=== PATIENT | male | born 1950 | race Caucasian/White ===

== ENCOUNTER → 2017-01-09 | Day surgery (SDC) | payer BC ==
[2016-12-27 13:47] VITALS: Ht 177.8 cm; Wt 177.3 kg
[~2017-01-09] VITALS: Ht 177.8 cm; Wt 177.3 kg
[~2017-01-09] MED LIST: ASPCH81X PO; ATOR-24 PO; CITA40TA4 PO; CLOP1TAB15 PO; FENTANYL CITRATE INJ 50 MCG/1 ML 2 ML VIAL ONE; GLC/500 PO; GLUCTAB7 PO; HYD50 PO; LIDOCAINE HCL 2% 2 ML VIAL (20MG/ML) ONE; METO50TA7 PO; MULT-1093 PO; PROPOFOL IV EMULSION 10 MG/ML 20 ML VIAL IV ONE
--- NOTE | 2017-01-09 12:54 | Endo History and Physical ---
History & Physical Date of Service: Jan 09, 2017. Chief Complaint: History of colon polyps Referring Physician: Dr. Salas History of Present Illness 66 yo CM who presents for colonoscopy secondary to history of colon polyps. Past Surgical History Hx Cardiac Surgery: Yes (PERICARDIECTOMY, HEART CATH-1 STENT PLACED) Hx Internal Defibrillator: No Hx Pacemaker: No Hx Abdominal Surgery: No Hx of Implantable Prosthesis: No Hx Post-Op Nausea and Vomiting: No Hx Cancer Surgery: Yes (MELANOMA REMOVAL FROM BACK) Hx Thoracic Surgery: No Hx Orthopedic: No Hx Urinary Tract Surgery: No Family History Colon CA Social History Smoking Status: Former Smoker Hx Substance Use: No Hx Alcohol Use: Yes (OCCASIONALLY) Allergies Coded Allergies: Penicillins (Verified Allergy, Unknown, HIVES, 12/27/16) Current Medications Reported Home Medications Medications Dose Route/Sig Max Daily Dose Days Date Category Glucosamine Chondroitin (Klccnblqhlh-Mvbppruljue-Ltw C-) 1 Tab Tab 1 Tab PO QAM 12/27/16 Reported Centrum Silver 50+Men (Multiple Vitamins W/ Minerals) 1 Tab Tab 1 Tab PO QAM 12/27/16 Reported Lipitor (Atorvastatin Calcium) 40 Mg Tab 40 Mg PO QPM 12/27/16 Reported Citalopram Hydrobromide (Citalopram) 40 Mg Tab 1 Tab PO QAM 90 12/27/16 Reported Hydrochlorothiazide 50 Mg Tab 1 Tab PO QAM 12/27/16 Reported Toprol-Xl (Metoprolol Succinate) 50 Mg Tabcr 50 Mg PO QAM 12/27/16 Reported Glucophage (Metformin Hcl) 500 Mg Tab 500 Mg PO BID 12/27/16 Reported Plavix (Clopidogrel Bisulfate) 75 Mg Tab 75 Mg PO QAM 12/27/16 Reported Aspirin Chewable (Aspirin) 81 Mg Chew 81 Mg PO QAM 12/27/16 Reported Vital Signs Weight (Kilograms): 177.27 Height (Feet): 5 Height (Inches): 10 Physical Exam General Appearance: WD/WN, no apparent distress Respiratory/Chest: Auscultation: breath sounds normal Cardiovascular: Heart Auscultation: RRR Abdomen: Bowel Sounds: normal Inspection & Palpation: soft, non-distended, no tenderness, guarding & rebound Assessment and Plan Assessment: 66 yo CM who presents for colonoscopy secondary to history of colon polyps. Plan: Proceed with Colonoscopy.
--- NOTE | 2017-01-09 13:49 | Discharge Instructions ---
Endoscopy Patient Instructions Date / Procedure(s) Performed Jan 09, 2017. Colonoscopy Allergy Information Coded Allergies: Penicillins (Verified Allergy, Unknown, HIVES, 12/27/16) Discharge Date / Findings Jan 09, 2017. Colon polyps Non-specific colitis s/p biopsies Diverticulosis Internal hemorrhoids Medication Instructions Stopped Medication(s): PLAVIX 01/03/17 ASPIRIN 01/09/17 OK to resume all medications today as prescribed Medications Dose Route/Sig Max Daily Dose Days Date Category Glucosamine Chondroitin (Dswgygomegp-Vwczpzdtkaq-Ezs C-) 1 Tab Tab 1 Tab PO QAM 12/27/16 Reported Centrum Silver 50+Men (Multiple Vitamins W/ Minerals) 1 Tab Tab 1 Tab PO QAM 12/27/16 Reported Lipitor (Atorvastatin Calcium) 40 Mg Tab 40 Mg PO QPM 12/27/16 Reported Citalopram Hydrobromide (Citalopram) 40 Mg Tab 1 Tab PO QAM 90 12/27/16 Reported Hydrochlorothiazide 50 Mg Tab 1 Tab PO QAM 12/27/16 Reported Toprol-Xl (Metoprolol Succinate) 50 Mg Tabcr 50 Mg PO QAM 12/27/16 Reported Glucophage (Metformin Hcl) 500 Mg Tab 500 Mg PO BID 12/27/16 Reported Plavix (Clopidogrel Bisulfate) 75 Mg Tab 75 Mg PO QAM 12/27/16 Reported Aspirin Chewable (Aspirin) 81 Mg Chew 81 Mg PO QAM 12/27/16 Reported Provider Instructions Activity Restrictions - No exercising or heavy lifting for 24 hours. - Do not drink alcohol the day of the procedure. - Do not drive a car or operate machinery until the day after the procedure. - Do not make any important decisions or sign important papers in 24 hours after the procedure. Following Day: - Return to full activity which may include returning to work/school. Diet Start your diet with liquids and light foods (jello, soup, juice, toast). Then eat your usual diet if not nauseated. Treatment For Common After Affects For mild abdominal pain, bloating, or excessive gas: - Rest - Eat lightly - Lie on right side Follow-Up Information Follow-up with DR. GARCIA as scheduled Anesthesia Information What You Should Know You have had a procedure that required some medicine to reduce anxiety and discomfort. This treatment is called moderate sedation. After receiving the treatment, you may be sleepy, but you will be able to breathe on your own. The effects of the treatment may last for several hours. Follow these instructions along with Activity/Diet recommendations noted above: * Do NOT do anything where dizziness or clumsiness would be dangerous. * Rest quietly at home today, then you can be up and about tomorrow. * Have a responsible person stay with you the rest of today. * You may have had an I.V. today. If so, you may take the dressing off later today. Recommendations Call your doctor if: * Trouble breathing * Continuous vomiting for more than 24 hours * Temperature above 101 degrees * Severe abdominal pain or bloating * Pain not relieved by pain medicine ordered * There is increased drainage or redness from any incision * A large amount of rectal bleeding greater than 2-3 tablespoons. (If you had a polyp/s removed or have hemorrhoids, a small amount of blood - from the rectum is to be expected.) * You have any unanswered questions or concerns. IN THE EVENT OF A SERIOUS EMERGENCY, GO TO THE NEAREST EMERGENCY ROOM Your discharge instructions were prepared by provider Xavi Lopez. Patient Instructions Signature Page Timo Summers Patient (or Guardian) Signature/Date: I have read and understand the instructions given to me by my caregivers. Caregiver/RN/Doctor Signature/Date: The above-named patient and/or guardian has received patient instructions on this date. + Original Patient Signature Page (only) stays with chart. Please make copy for patient.
--- NOTE | 2017-01-09 13:56 | GI REPORT ---
Procedure Date: 01/09/2017 1:12 PM Procedure: Colonoscopy Indications: High risk colon cancer surveillance: Personal history of colonic polyps Medicines: Monitored Anesthesia Care Complications: No immediate complications. Estimated Blood Loss: Estimated blood loss: none. Procedure: Pre-Anesthesia Assessment: - Prior to the procedure, a History and Physical was performed, and patient medications and allergies were reviewed. The patient's tolerance of previous anesthesia was also reviewed. The risks and benefits of the procedure and the sedation options and risks were discussed with the patient. All questions were answered, and informed consent was obtained. Prior Anticoagulants: The patient last took aspirin 1 day and Plavix (clopidogrel) 6 days prior to the procedure. ASA Grade Assessment: III - A patient with severe systemic disease. After reviewing the risks and benefits, the patient was deemed in satisfactory condition to undergo the procedure. After I obtained informed consent, the scope was passed under direct vision. Throughout the procedure, the patient's blood pressure, pulse, and oxygen saturations were monitored continuously. The scope was introduced through the anus and advanced to the terminal ileum. The colonoscopy was performed without difficulty. The patient tolerated the procedure well. The quality of the bowel preparation was good. The terminal ileum, ileocecal valve, appendiceal orifice, and rectum were photographed. Findings: Two sessile polyps were found in the descending colon and in the ascending colon. The polyps were 5 to 6 mm in size. These polyps were removed with a hot snare. Resection and retrieval were complete. To prevent bleeding after the polypectomy, one hemostatic clip was successfully placed (MR conditional). There was no bleeding at the end of the procedure. Localized moderate inflammation characterized by congestion (edema) and erythema was found in the sigmoid colon. Biopsies were taken with a cold forceps for histology. Multiple small-mouthed diverticula were found in the sigmoid colon. Non-bleeding internal hemorrhoids were found during retroflexion. The hemorrhoids were small. Impression: - Two 5 to 6 mm polyps in the descending colon and in the ascending colon, removed with a hot snare. Resected and retrieved. Clip (MR conditional) was placed. - Localized moderate inflammation was found in the sigmoid colon secondary to colitis. Biopsied. - Diverticulosis in the sigmoid colon. - Non-bleeding internal hemorrhoids. Recommendation: - Resume previous diet. - Continue present medications. - Repeat colonoscopy for surveillance based on pathology results. - Return to primary care physician as previously scheduled. Xavi Lopez, DO 01/09/2017 1:56:01 PM This report has been signed electronically. Note Initiated On: 01/09/2017 1:12 PM I attest to the content of the Intraoperative Record and orders documented therein, exceptions below
--- NOTE | 2017-01-09 13:58 | Anesthesiology Progress Note ---
Anesthesia Post Op Note Date & Time Jan 09, 2017 at 13:58 Vital Signs Pain Intensity: 0 Vital Signs Past 12 Hours Date Time Temp Pulse Resp B/P (MAP) Pulse Ox O2 Delivery O2 Flow Rate FiO2 01/09/17 13:47 69 16 127/59 (81) 95 Room Air 01/09/17 12:56 37.5 69 20 175/78 (110) 96 Room Air Notes Mental Status: alert / awake / arousable, participated in evaluation Pt Amnestic to Procedure: Yes Nausea / Vomiting: adequately controlled Pain: adequately controlled Airway Patency, RR, SpO2: stable & adequate BP & HR: stable & adequate Hydration State: stable & adequate Anesthetic Complications: no major complications apparent
[2017-01-09 14:17] VITALS: BP 122/77; PULSE 60; O2SAT 95
== END | disposition home or self-care (01) ==
LOC: C.GI 12:23
PROVIDERS: ATTEND Internal Medicine
DX: Z12.11 Encounter for screening for malignant neoplasm of colon (principal); D12.2 Benign neoplasm of ascending colon; D12.4 Benign neoplasm of descending colon; Z86.010 Personal history of colon polyps; Z85.820 Personal history of malignant melanoma of skin; Z80.0 Family history of malignant neoplasm of digestive organs; Z87.891 Personal history of nicotine dependence; Z79.82 Long term (current) use of aspirin; Z79.899 Other long term (current) drug therapy; K57.30 Diverticulosis of large intestine without perforation or abscess without bleeding; K64.8 Other hemorrhoids

== ENCOUNTER → 2017-04-26 | Outpatient (CLI) | payer BC ==
[~2017-04-26] MED LIST changes: -FENTANYL CITRATE INJ 50 MCG/1 ML 2 ML VIAL ONE; -LIDOCAINE HCL 2% 2 ML VIAL (20MG/ML) ONE; -PROPOFOL IV EMULSION 10 MG/ML 20 ML VIAL IV ONE
[2017-04-26 12:59] LABS: ALT/SGPT 23 U/L (12-78); AST/SGOT 13 U/L (15-37); BLOOD UREA NITROGEN 18 mg/dl (7-18); BUN/CREATININE RATIO 21.5 (10-20); CALCIUM 9.5 mg/dl (8.5-10.1); CARBON DIOXIDE 27 mmol/L (21-32); CHLORIDE 104 mmol/L (98-107); CHOLESTEROL 117 mg/dl (0-200); CREATININE 0.85 mg/dl (0.60-1.40); GLUCOSE 139 mg/dl (70-99); POTASSIUM 3.8 mmol/L (3.5-5.1); SODIUM 138 mmol/L (136-145)
[2017-04-26 13:03] LABS: CHOLESTEROL/HDL RATIO 2.5; HDL CHOLESTEROL 46 mg/dl; LDL CHOLESTEROL CALCULATED 55 mg/dl; PROSTATE SPECIFIC ANTIGEN 0.512 ng/ml (0.000-4.000); TRIGLYCERIDES 81 mg/dl (0-150); VERY LOW DENSITY LIPOPROT CALC 16 mg/dl
[2017-04-26 13:09] LABS: ESTIMATED AVERAGE GLUCOSE 146 mg/dl; HA1C FLAG Normal (Normal)
== END ==
LOC: C.LABBFT 08:01
PROVIDERS: ATTEND Internal Medicine
DX: Z00.00 Encounter for general adult medical examination without abnormal findings (principal); Z11.59 Encounter for screening for other viral diseases; R73.01 Impaired fasting glucose; E78.5 Hyperlipidemia, unspecified; Z12.5 Encounter for screening for malignant neoplasm of prostate

== ENCOUNTER → 2017-12-12 | Outpatient (CLI) | payer BC, OTHER ==
[~2017-12-12] VITALS: Ht 177.8 cm; Wt 181.8 kg
[~2017-12-12] MED LIST changes: -METO50TA7 PO; +METO50TA8 PO
[2017-12-12 15:19] VITALS: BP 149/83; PULSE 75; Ht 177.8 cm; Wt 181.8 kg
== END | disposition home or self-care (01) ==
LOC: C.NEUR 13:10
PROVIDERS: ATTEND Physician Assistant
DX: G47.33 Obstructive sleep apnea (adult) (pediatric) (principal); Z88.0 Allergy status to penicillin

== ENCOUNTER 2025-06-14 05:18 | Observation (INO) ==
--- NOTE | 2025-05-11 14:05 | PAT Medication Instructions ---
Medication Instructions Date of Service May 11, 2025 Home Medications Medication Instructions Recorded meclizine 25 mg tablet 25 mg PO TID PRN dizziness #30 tabs 06/18/24 sildenafil 100 mg tablet 100 mg PO DAILY PRN sexual 07/08/24 activity #20 tabs metformin 1,000 mg tablet See Rx Instructions .Route 08/28/24 .COMPLEX #225 tabs hydrochlorothiazide 25 mg tablet 25 mg PO QAM #90 tabs 02/26/25 metoprolol succinate 50 mg 50 mg PO QAM #90 tabs 04/26/25 tablet,extended release 24 hr aspirin 81 mg tablet,delayed release (Adult Low Dose Aspirin) 81 mg PO QAM meclizine 25 mg tablet 25 mg PO TID PRN dizziness sildenafil 100 mg tablet 100 mg PO DAILY PRN sexual activity metformin 1,000 mg tablet See Rx Instructions .Route .COMPLEX cholecalciferol (vitamin D3) 100 mcg (4,000 unit) capsule 100 mcg PO QAM vitamin B12 500 mcg-folic acid 400 mcg tablet 1 tab PO DAILY hydrochlorothiazide 25 mg tablet 25 mg PO QAM metoprolol succinate 50 mg tablet,extended release 24 hr 50 mg PO QAM atorvastatin 40 mg tablet (Lipitor) 40 mg PO HS citalopram 40 mg tablet (Celexa) 40 mg PO QAM clopidogrel 75 mg tablet (Plavix) 75 mg PO QAM olmesartan 20 mg tablet 20 mg PO QAM tamsulosin 0.4 mg capsule (Flomax) 0.4 mg PO QAM ASK your prescriber and surgeon aspirin 81 mg tablet,delayed release (Adult Low Dose Aspirin) 81 mg PO QAM clopidogrel 75 mg tablet (Plavix) 75 mg PO QAM (From anesthesia perspective, clopidogrel/Plavix is requested to be stopped 7 days before surgery. Please check if okay with doctor that prescribes this to you) DO NOT take the morning of surgery sildenafil 100 mg tablet 100 mg PO DAILY PRN sexual activity metformin 1,000 mg tablet See Rx Instructions .Route .COMPLEX cholecalciferol (vitamin D3) 100 mcg (4,000 unit) capsule 100 mcg PO QAM vitamin B12 500 mcg-folic acid 400 mcg tablet 1 tab PO DAILY hydrochlorothiazide 25 mg tablet 25 mg PO QAM olmesartan 20 mg tablet 20 mg PO QAM Take morning of surgery With a small sip of water, OTHERWISE NOTHING TO EAT OR DRINK AFTER MIDNIGHT: meclizine 25 mg tablet 25 mg PO TID PRN dizziness (if needed) metoprolol succinate 50 mg tablet,extended release 24 hr 50 mg PO QAM citalopram 40 mg tablet (Celexa) 40 mg PO QAM tamsulosin 0.4 mg capsule (Flomax) 0.4 mg PO QAM Take evening before surgery meclizine 25 mg tablet 25 mg PO TID PRN dizziness (if needed) metformin 1,000 mg tablet See Rx Instructions .Route .COMPLEX atorvastatin 40 mg tablet (Lipitor) 40 mg PO HS Other Notes If you have any questions please call us at [phone] or [phone] or [phone] or [phone]
--- NOTE | 2025-05-18 13:08 | Anesthesiology Consultation ---
Date of Service May 18, 2025 Assessment & Plan (1) Encounter for pre-operative examination: Chart Review Chart Review: Acceptable Risk for Surgery (pending PCP preop appt 05/31/25 regarding hyperkalemia and hyponatremia ) and Patient seen in Pre Admission Testing - Please set up preop PCP appt (Allyson Barros PA-C) re: hyperkalemia and hyponatremia (workload note sent to PCP 05/18/25 and PCP recommended preop evaluation appt (did make patient aware) - PCP preop appt scheduled 05/31/25 - Check BSG AM DOS - Plavix instructions per surgeon and prescriber (patient did check with radio tester (Dr Savage) and was approved to come off Plavix x 7 days per patient) - Patient is NOT an OPJ candidate (currently 23 hour obs) Per PAT appt on 05/18/25, no recent illness/disease exposures, illness related symptoms, or recent illness/disease positive tests. Will leave to surgeon's discretion if preop Covid testing needed Cardiology visit 02/16/25= "... coronary artery disease... stable exercise tolerance and stamina... HTN... repeat BP taken shows good control... Dyslipidemia... atorvastatin... Chronic leg edema... continue to use support hos e... 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 no current signs of symptoms suggestive of thromboembolic event... remote history of atrial fibrillation... no evidence of a fib since pericardiectomy on 11/08/2004..." Teaching & Discussion Pre-Anesthesia Teaching/Discussion Notes: Instructed NPO after midnight before surgery,except medications with 15 cc of water. Medication instructions provided according to the PAT guidelines. History Surgery Operation Date: 06/14/25 12:00 Proposed Procedures p Robotic Assisted Right Total Knee Arthroplasty - Luis Smith, Height/Weight Height: 5 ft 10 in Weight: 169.8 kg Allergies Allergy/AdvReac Type Severity Reaction Status Date / Time Penicillins Allergy Mild Hives Verified 05/10/25 13:11 Medications Home Medications Medication Instructions Recorded Confirmed Last Taken aspirin 81 mg tablet,delayed 81 mg PO QAM 03/24/19 05/10/25 02/07/25 release (Adult Low Dose Aspirin) meclizine 25 mg tablet 25 mg PO TID PRN dizziness #30 tabs 06/18/24 05/10/25 Unknown sildenafil 100 mg tablet 100 mg PO DAILY PRN sexual 07/08/24 05/10/25 02/07/25 activity #20 tabs metformin 1,000 mg tablet See Rx Instructions .Route 08/28/24 05/10/25 02/07/25 .COMPLEX #225 tabs cholecalciferol (vitamin D3) 100 100 mcg PO QAM 01/25/25 05/10/25 02/07/25 mcg (4,000 unit) capsule vitamin B12 500 mcg-folic acid 400 1 tab PO DAILY 01/25/25 05/10/25 Unknown mcg tablet hydrochlorothiazide 25 mg tablet 25 mg PO QAM #90 tabs 02/26/25 05/10/25 Unknown metoprolol succinate 50 mg 50 mg PO QAM #90 tabs 04/26/25 05/10/25 Unknown tablet,extended release 24 hr atorvastatin 40 mg tablet (Lipitor) 40 mg PO HS 05/10/25 05/10/25 Unknown citalopram 40 mg tablet (Celexa) 40 mg PO QAM 05/10/25 05/10/25 Unknown clopidogrel 75 mg tablet (Plavix) 75 mg PO QAM 05/10/25 05/10/25 Unknown olmesartan 20 mg tablet 20 mg PO QAM 05/10/25 05/10/25 Unknown tamsulosin 0.4 mg capsule (Flomax) 0.4 mg PO QAM 05/10/25 05/10/25 Unknown Past Medical History Medical History (Updated 05/18/25 @ 13:36 by Rhoda Nava PA-C) Antiplatelet or antithrombotic long-term use Clopidogrel/Plavix BPH NOS w ur obs/LUTS follows with urology- dr. null CAD (coronary artery disease) x1 stent 2009 - follows with cardio dr. 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- no issues since (s/p pericardiectomy (pericardial window was ineffective) Sleep apnea CPAP Tinnitus of right ear Exercise / Class Metabolic Activity II 4-5 Yardwork/Stairs/Walk up hill (one flight of stairs - no chest pain or SOB ) Past Family History Family History Mother Colorectal cancer Son Colorectal cancer Father Hypertension Prostate cancer Other Cancer No family history of adverse response to anesthesia No family history of bleeding disorder Stroke Denies family history of Ovarian cancer Myocardial infarction Breast cancer Past Surgical History Surgical History (Updated 05/18/25 @ 13:36 by Rhoda Nava PA-C) History of cystoscopy History of melanoma excision History of [place] (2004[place] [facility] [place] History of tonsillectomy History of tooth extraction Hx of colonoscopy with polypectomy S/P cardiac catheterization (2009) sasha >no [place]- with 1 stent - follows with cardio dr. savage S/P drug eluting coronary stent placement (2009) sasha >no [place]- with 1 stent - follows with cardio dr. savage S/P lymph node biopsy groin - benign Past Anesthesia History No Hx of Anesthesia Complications and No Family Hx of Anesthesia Complications History of PONV No Hx of Motion Sickness and History of PONV (only with ether during childhood- no issues with subsequent surgeries ) Social History Smoking Status: Former smoker Do You Dip or Chew Tobacco: No Smoking End Date: 30 + years ago Hx Alcohol Use: Yes Alcohol type: beer, wine and hard liquor alcohol intake frequency: holidays/special occasions only Hx Substance Use: No substance use type: does not use Review of Systems Patient denies chest pain, shortness of breath at rest, reflux, cough, wheezing, palpitations. No hx of seizures. No hx of blood clots or blood transfusions Physical Exam Vital Signs VITALS BP 126/72 P 60 TEMP 97.6 SP02 97% RESP 16 Constitutional no acute distress ENMT Mouth: no TMJ clicking Thyromental Distance: > or= 3.5 Finger Breadths (3.5) Mallampati Class: III Permanent implants to side and back teeth Neck + limited neck extension Respiratory normal respiratory effort; no respiratory distress Auscultation: lungs clear to auscultation bilaterally; no wheezes Cardiovascular Rate/Rhythm: regular rate and regular rhythm Heart Sounds: no murmur Vessels: no carotid bruit Musculoskeletal Spine: no pain with cervical ROM Extremities: extremities normal to inspection Psychiatric Orientation: alert Lab Results Anesthesia Preop Results Results Anesthesia Widget: WBC 8.06 K/ul (4.8-10.8) 05/18/25 Hgb 14.2 g/dl (14.0-18.0) 05/18/25 Hct 42.2 % (42.0-52.0) 05/18/25 Plt 245 K/uL (130-400) 05/18/25 Na 130 mmol/L (136-145) L 05/18/25 K 5.2 mmol/L (3.5-5.1) H 05/18/25 Cl 92 mmol/L (98-107) L 05/18/25 CO2 31 mmol/L (21-32) 05/18/25 BUN 15 mg/dl (6-23) 05/18/25 Creat 0.86 mg/dl (0.6-1.4) 05/18/25 Glucose Level 122 mg/dl (70-99(Fasting)) H 05/18/25 PT 10.8 Seconds (9.0-12.0) 05/18/25 PTT 29 Seconds (21-31) 05/18/25 INR 1.0 (0.9-1.1) 05/18/25 HA1c 6.1 % (4.5-5.6) H 05/18/25 Blood Type A Negative 05/18/25 Antibody Screen NEGATIVE 05/18/25 Testing Laboratory Results Hyponatremia- chronic per PCP- Na ranging from 130-135- felt to be related to HCTZ- will inform PCP Hyperkalemia- will inform PCP to address prior to surgery Electrocardiogram Date: 05/18/25 SB with 1st degree AVB at 56bpm Low voltage QRS Incomplete RBBB When compared to EKG from Sep 02, 2013- [place] interval has increased per cardio Chest X-Ray Date: 05/18/25 Mild cardiomegaly. Median sternotomy wires are present. No pneumothorax, or large pleural effusion, airspace consolidation or pulmonary edema. Hyperinflation with diaphragmatic flattening and costophrenic angle blunting. Degenerative changes of the shoulders and spine. IMPRESSION: Cardiomegaly without acute process. Other Testing Head/Neck CTA 03/12/22= No acute intracranial hemorrhage, evidence of acute territorial infarction, or other acute intracranial disease process. No occlusion, hemodynamically significant stenosis, aneurysm, dissection, or arteriovenous malformation in the major intracranial arteries. No occlusion, hemodynamically significant stenosis, or dissection in the major cervical arteries. Internal Auditory Canal MRI 11/14/21= No acute abnormality. Normal bilateral internal auditory canals. Mild atrophy and microvascular ischemic changes. Old small infarct within the left cerebellar hemisphere.
--- NOTE | 2025-06-09 15:37 | History & Physical Report ---
Date of Service June 09, 2025 Assessment & Plan (1) Osteoarthritis of right knee: We will proceed with a right total knee arthroplasty. Postoperatively, he will be started on aspirin and Plavix for DVT prophylaxis and kept overnight in the hospital for postop medical management. He plans to use energy physical therapy after discharge. History of Present Illness Chief Complaint: Osteoarthritis of the right knee. Primary Care Provider: Tristen Salas MD Timo is a pleasant 74-year-old male who has been dealing with chronic worsening bilateral knee pain. He has known arthritis of both knees. He has been treated with injections in the past. Unfortunately, he is still really struggling with his knees. He does have a BMI of 52 and he is morbidly obese but he does not carry much weight in his legs. Most of his weight is around his pannus. After failed conservative treatment, he has elected proceed with a right total knee arthroplasty. Allergies Allergy/AdvReac Type Severity Reaction Status Date / Time Penicillins Allergy Mild Hives Verified 06/07/25 13:55 Home Medications Medication Instructions Recorded Confirmed Type aspirin 81 mg tablet,delayed 81 mg PO QAM 03/24/19 06/07/25 History release (Adult Low Dose Aspirin) meclizine 25 mg tablet 25 mg PO TID PRN dizziness #30 tabs 06/18/24 06/07/25 Rx sildenafil 100 mg tablet 100 mg PO DAILY PRN sexual 07/08/24 06/07/25 Rx activity #20 tabs metformin 1,000 mg tablet See Rx Instructions .Route 08/28/24 06/07/25 Rx .COMPLEX #225 tabs cholecalciferol (vitamin D3) 100 100 mcg PO QAM 01/25/25 06/07/25 History mcg (4,000 unit) capsule vitamin B12 500 mcg-folic acid 400 1 tab PO DAILY 01/25/25 06/07/25 History mcg tablet metoprolol succinate 50 mg 50 mg PO QAM #90 tabs 04/26/25 06/07/25 Rx tablet,extended release 24 hr atorvastatin 40 mg tablet (Lipitor) 40 mg PO HS 05/10/25 06/07/25 History citalopram 40 mg tablet (Celexa) 40 mg PO QAM 05/10/25 06/07/25 History clopidogrel 75 mg tablet (Plavix) 75 mg PO QAM 05/10/25 06/07/25 History olmesartan 20 mg tablet 20 mg PO QAM 05/10/25 06/07/25 History tamsulosin 0.4 mg capsule (Flomax) 0.4 mg PO QAM 05/10/25 06/07/25 History hydrochlorothiazide 12.5 mg tablet 12.5 mg PO QAM #90 tabs 05/31/25 06/07/25 Rx Past Med/Surg History Problem List Osteoarthritis of right knee BPH NOS w ur obs/LUTS History of hematuria Vitamin B12 deficiency Chronic prostatitis 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 History of colon polyps Encounter for pre-operative examination Sinusitis Sensorineural hearing loss (SNHL) of right ear with unrestricted hearing of left ear Vertigo Tinnitus of right ear Chronic edema S/P drug eluting coronary stent placement (Acute) Nocturnal hypoxemia Severe obstructive sleep apnea Antiplatelet or antithrombotic long-term use CAD (coronary artery disease) Hyperlipidemia (Chronic) Mood disorder (Chronic) Diabetes mellitus (Chronic) Hypertension (Chronic) Lesion of urinary bladder pt denies - s/p multiple cystoscopy's - [facility] Urology Internal hemorrhoids Medical History Epistaxis remote history- 08/2024- went to ER / ENT- had nasal packing - no issues since felt due to dry weather/sleeps with CPAP Hearing loss Right Hearing Aid Meniere's disease, right ear Antiplatelet or antithrombotic long-term use Clopidogrel/Plavix 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 null Chronic prostatitis Hx of edema Chronic LE edema Stable with compression socks Hx of vertigo hasn't had for over 1 year Mood disorder Tinnitus of right ear Diverticular disease No known diverticulitis flares CAD (coronary artery disease) x1 stent 2009 - follows with cardio dr. 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 savage History of tooth extraction History of tonsillectomy History of pericardiectomy (2004) [place] [facility] [place] went on to have cardiac cath S/P lymph node biopsy groin - benign History of melanoma excision S/P cardiac catheterization (2009) sasha >no MS- with 1 stent - follows with cardio dr. savage Family History Mother Colorectal cancer Son Colorectal cancer Father Hypertension Prostate cancer Other Cancer No family history of adverse response to anesthesia No family history of bleeding disorder Stroke Denies family history of Ovarian cancer Myocardial infarction Breast cancer Social History Smoking Status: Former smoker Tobacco Type: Cigarettes Age Started Using Tobacco: 21; Age Quit Using Tobacco: 37; packs per day: 2; Second Hand Exposure: No; Do You Dip or Chew Tobacco: No; Hx Alcohol Use: Yes Alcohol type: beer, wine and hard liquor Alcohol Intake Frequency: 2-4 x/Month Hx Substance Use: No Preferred Language: Syriac Communication Ability: Effective Visual Impairment: No Limitations Hearing Ability: Normal Costumed Character Entertainer Required: No Beliefs That Will Affect Care: None marital status: Current Living Situation: Spouse current occupational status: employed current occupation: director call center sales Feels Safe at Home: Yes Childhood Exposure to Second-Hand Smoke: Yes Dental Care, Regularly: Yes Physical Activity Frequency: Does not Exercise Seatbelt Use: always Assistive Devices: CPAP, Glasses, Hearing Aid - Right and Other Review of Systems All systems reviewed & are unremarkable except as noted in HPI & below. Physical Exam On physical exam of the right knee, he does have a varus deformity. Tenderness palpation of the distal medial femoral condyle and over the medial joint line.. Constitutional WD/WN, vitals as above Eyes PERRL, conjunctivae normal, anicteric sclerae ENMT external ear and nose normal, oropharynx normal Neck trachea midline, no thyromegaly Respiratory normal respiratory effort Cardiovascular RRR, no murmur, no edema Gastrointestinal (Abdomen) normal bowel sounds, soft, nontender, no hepatosplenomegaly Psychiatric A+Ox3, euthymic affect Results & Data Results & Data Laboratory Results . Diagnostic Findings . PG Care Time/CCT Total # of Minutes Spent Total Time Spent with Patient: Total time spent is greater than 50% in coordination of care (as documented) at patient's floor/unit and/or counseling patient: Coding Level of Care Code None Diagnoses Osteoarthritis of right knee M17.11
[2025-06-14] MEDS: FAMOTIDINE 20 MG TAB PO SCH (05:56)
[2025-06-14] MEDS: ACETAMINOPHEN 500 MG TAB PO SCH ×2 (05:56→14:38)
[2025-06-14] MEDS: dexAMETHasone**PF** 10 MG/ML VIAL IV SCH (05:58)
[2025-06-14] MEDS: GABAPENTIN 300 MG CAP PO SCH (05:58)
[2025-06-14] MEDS: LR 60ML/HR IV SCH (05:59)
[2025-06-14] MEDS: LR 500ML BOLUS, THEN 15ML/HR IV SCH (05:59)
[2025-06-14] MEDS ORDERED: BUPIVACAINE 0.5 % 5 MG/1 ML PF 10ML VIAL ONE (06:27)
[2025-06-14] MEDS ORDERED: BUPIVACAINE 0.25% PF 30 ML VIAL ONE (06:27)
[2025-06-14] MEDS ORDERED: ONDANSETRON INJ 2 MG/ML 2 ML VIAL ONE (06:33)
[2025-06-14] MEDS ORDERED: PROPOFOL IV EMULSION 10 MG/ML 100 ML VIAL IV ONE (06:33)
[2025-06-14] MEDS ORDERED: MIDAZOLAM HCL 1 MG/ML 2ML VIAL ONE (06:34)
--- NOTE | 2025-06-14 06:43 | History & Physical Bridge Note ---
Date of Service June 14, 2025 History & Physical Bridge Note I have examined the patient, reviewed the History & Physical and in the interval since the performance of the History & Physical I have noted the following changes of clinical significance: no changes noted
[2025-06-14] MEDS ORDERED: ATROPINE SULFATE 0.1 MG/ML 10ML SYR IV PRN (06:47)
[2025-06-14] MEDS ORDERED: ONDANSETRON INJ 2 MG/ML 2 ML VIAL IV PRN ×2 (06:47→11:17)
[2025-06-14] MEDS: TRANEXAMIC ACID 1,000 MG **IV Pre-op IV SCH (06:48)
[2025-06-14] MEDS: ceFAZolin 3000MG 3,000 MG/72.5 ML BAG IV SCH (07:08)
[2025-06-14] MEDS ORDERED: ePHEDrine sulfate 50 MG/5 ML SYR ONE (07:33)
[2025-06-14] MEDS: ORTHO JOINT ANESTHETIC ONE (07:42)
[2025-06-14] MEDS: ROPIV 0.5% 246mg, Ketorolac 30mg, EPINEPHrine 0.5mg in NSS INFIL SCH (07:42)
--- NOTE | 2025-06-14 09:17 | Operative Report ---
PG Post Operative Report Pre & Post Diagnosis Operation Date: 06/14/25 07:00 Pre-Op Diagnosis: Right Knee Osteoarthritis Post-Op Diagnosis: Right Knee Osteoarthritis I identified the patient and participated in the time-out.: Yes Procedure Operation Date: 06/14/25 07:00 Actual Procedures p Robotic Assisted Right Total Knee Arthroplasty(Right) - Luis Smith DO Surgeon Luis Smith DO Physical Security Engineer Richard Vernon PA-C Estimated Blood Loss 30 Findings Consistent with Post-Op Diagnosis Specimens Right femoral and tibial bone Description of Procedure Implants used: I used a Cholo Persona total knee arthroplasty system with a size 10 standard PS femur, F tibia, 35 patella, and a size 14 CPS polyethylene bearing. All components were press-fit into place. Timo arrived [facility] for the above procedure. He was seen in the preoperative holding area and the operative extremity was identified and signed. he was given a preoperative antibiotic, TXA, a spinal anesthetic and an adductor nerve block. He was taken back to the operating room and laid on the table in supine position. He was given basic sedation. The operative knee was then prepped and draped in sterile fashion. A timeout was done, and the patient and the operative extremity was properly identified. A midline incision was made directly over the patella. Dissection was taken down to the extensor mechanism. A medial parapatellar arthrotomy was used. The medial retinaculum was released and the fat pad was mostly excised. The knee was flexed and the ACL, PCL, and meniscus were removed. The alignment of the knee replacement was assisted with a [employer] robotic knee. The femoral array was pinned in the distal femur and the tibial array was pinned using a percutaneous technique in the upper shaft of the tibia. The robot was appropriately calibrated and the structure of the knee was mapped out. The components were then manipulated on the screen to account for any malalignment and to assist in gap balancing. Once I was happy with the placement of the components on the screen, a distal femoral cutting guide was brought in place. The distal femur was then resected. The femur measured to be a size 10. A 4-in-1 cutting block was then put into place by the robot and 2 peg holes were drilled. The 4-in-1 cutting block was then impacted into place and anterior, posterior, and chamfer cuts were made. The cutting block was then brought down to the tibia and pinned into place. The proximal tibia was then resected. The posterior aspect of the knee was then opened up and any additional meniscus fragments and osteophytes were removed. The tibia measured to be a size F. The tibial plate was then placed in the appropriate rotation and the tibia was drilled and punched. Trial components were then placed. The patella was then everted and 9 mm was resected off the posterior aspect of the patella. The patella measured to be a size 35. 3 peg holes were then drilled. A trial patella was placed. A size 14 CPS polyethylene insert was then trialed. The knee was brought through a full range of motion and felt to be stable. Trial components were then removed. The surrounding soft tissues were injected with 100 cc of an orthopedic pain control cocktail. All components were then press-fit into place. The final polyethylene insert was then snapped into place. The tourniquet was deflated. Hemostasis was obtained. A dilute betadyne lavage was then done for 3 minutes. The joint was then irrigated with normal saline solution. The medial parapatellar arthrotomy was then closed with #1 Vicryl suture. The skin was closed with 2-0 Vicryl, 3-0V lock suture, and Jacob Zipline. A soft compressive dressing was placed. He was then transferred to a hospital bed and taken to the postanesthesia care unit in stable condition. He tolerated the procedure well. Richard Vernon PA-C, was present for the entire procedure. He was critical for patient positioning, prepping, draping, retraction exposure, wound closure and application of sterile dressing. I attest to the content of the Intraoperative Record and any orders documented therein. Any exceptions are noted below.
--- NOTE | 2025-06-14 09:26 | XRay Report ---
XR knee RT 1 or 2V routine CLINICAL HISTORY: Surgical Post Op COMPARISON: 08/31/2022 FINDINGS: Right knee prosthesis shows no hardware complication. There is expected soft tissue gas. IMPRESSION: Unremarkable postoperative exam. ACT 112: Negative or not required by law. Electronically signed by: Jairo Landaverde M.D. 06/14/2025 9:25 AM
[2025-06-14] MEDS ORDERED: MAGNESIUM HYDROXIDE SUSP 30 ML UDC PO PRN (11:17)
[2025-06-14] MEDS ORDERED: METOCLOPRAMIDE HCL INJ 5 MG/ML 2 ML VIAL IV PRN (11:17)
[2025-06-14] MEDS ORDERED: NALOXONE HCL 0.4 MG/1 ML VIAL/CARP IV PRN (11:17)
[2025-06-14] MEDS ORDERED: HYDROmorphone INJ 0.5 MG/0.5 ML SYR IV PRN (11:17)
[2025-06-14] MEDS ORDERED: PHARMACY GLYCEMIC MGMT CONSULT PRN (11:17)
[2025-06-14] MEDS: SODIUM CHLORIDE 0.9% 1,000 ML IV SCH (11:27)
[2025-06-14] MEDS ORDERED: GLUCOSE 40% GEL 15 GM TUBE PO PRN (11:45)
[2025-06-14] MEDS ORDERED: CARBOHYDRATES FOR HYPOGLYCEMIA PO PRN (11:45)
[2025-06-14] MEDS ORDERED: GLUCOSE 10 TAB/TUBE PO PRN (11:45)
[2025-06-14] MEDS ORDERED: DEXTROSE 50% 50 ML SYRINGE IV PRN (11:45)
[2025-06-14] MEDS ORDERED: GLUCAGON FOR INJ 1 MG VIAL SQ PRN (11:45)
[2025-06-14] MEDS: INSULIN ASPART PER UNIT CHARGE SC SCH (12:40)
[2025-06-14] MEDS: KETOROLAC TROMETHAMINE 15 MG/ML VIAL IV SCH (12:40)
[2025-06-14] MEDS: hydroCHLOROthiazide 25 MG TAB PO SCH (12:40)
[2025-06-14] MEDS: LOSARTAN POTASSIUM 50 MG TAB PO SCH (12:40)
[2025-06-14] MEDS: CLOPIDOGREL BISULFATE 75 MG TAB PO SCH (12:40)
--- NOTE | 2025-06-14 13:07 | Pharmacy Report ---
Pharmacy Glycemic Short Note 2 - Date of Service June 14, 2025 - Glycemic Short BSG Results (Last 24 hours): 06/14/25 06/14/25 06/14/25 05:39 09:07 11:16 POC Glucose 117 H 123 H 128 H OUTPATIENT ANTIDIABETIC REGIMEN: * Metformin 1 g PO BIDM, 500 mg w/ lunch HbA1c: 6.1% (05/18/25) ASSESSMENT: * SW is a 74 year old male POD #0 s/p right total knee arthroplasty * Received 10 mg IV dexamethasone in OR, no ongoing steroids ordered * Preop blood sugar of 123 mg/dL, postop blood sugar of 128 mg/dL * Will use adjusted body weight for initial bolus insulin dosing * Hold off on basal for now, but will give at dinnertime if needed PLAN FOR INPATIENT GLYCEMIC CONTROL: * Hold outpatient oral diabetes medications * Basal insulin * Lantus 0-10-15 units SC x 1 w/ dinner (see EHR for details) * Bolus insulin * NovoLog per scale ACHS or Q6hrs while NPO * Goal Range: Low 110 mg/dL - High 140 mg/dL * Correction Factor: 20 mg/dL/unit * Nutritional / Prandial insulin per carb ratio of 1 unit per 7 grams CHO consumed
--- NOTE | 2025-06-14 14:59 | Anesthesiology Progress Note ---
Date of Service June 14, 2025 Anesthesia Post Procedure Vital Signs Vital Signs: Temp Pulse Pulse Pulse Resp BP BP 06/14/25 14:10 36.9 C 60 16 134/74 06/14/25 13:13 36.7 C 62 16 133/73 06/14/25 12:12 36.9 C 55 L 16 131/80 06/14/25 11:44 36.5 C 54 L 16 128/77 06/14/25 11:10 06/14/25 11:10 37.3 C 53 L 16 124/69 06/14/25 10:55 36.6 C 53 L 13 124/69 06/14/25 10:45 52 L 13 126/68 06/14/25 10:35 52 L 13 130/67 06/14/25 10:25 52 L 13 128/66 06/14/25 10:15 36.5 C 56 L 16 136/72 06/14/25 10:05 53 L 14 128/69 06/14/25 09:55 54 L 11 L 133/68 06/14/25 09:45 53 L 12 124/64 06/14/25 09:35 55 L 14 107/67 06/14/25 09:25 53 L 11 L 124/61 06/14/25 09:15 56 L 14 118/61 06/14/25 09:05 58 L 15 113/54 L 06/14/25 08:58 36.2 C L 59 L 17 108/63 06/14/25 06:02 06/14/25 05:45 36.5 C 53 L 22 134/73 Pulse Ox O2 Del Method O2 Flow Rate 06/14/25 14:10 97 Room Air 06/14/25 13:13 94 Room Air 06/14/25 12:12 97 Nasal Cannula 2 06/14/25 11:44 97 Nasal Cannula 2 06/14/25 11:10 Nasal Cannula 2 06/14/25 11:10 98 Nasal Cannula 2 06/14/25 10:55 96 Nasal Cannula 2 06/14/25 10:45 97 Nasal Cannula 2 06/14/25 10:35 96 Nasal Cannula 2 06/14/25 10:25 97 Nasal Cannula 2 06/14/25 10:15 94 Nasal Cannula 2 06/14/25 10:05 95 Nasal Cannula 2 06/14/25 09:55 95 Nasal Cannula 2 06/14/25 09:45 95 Nasal Cannula 2 06/14/25 09:35 95 Nasal Cannula 2 06/14/25 09:25 96 Nasal Cannula 2 06/14/25 09:15 95 Nasal Cannula 2 06/14/25 09:05 93 Room Air 06/14/25 08:58 93 Room Air 06/14/25 06:02 Room Air 06/14/25 05:45 95 Room Air Transfer of Care Handoff Completed per policy Notes Mental Status: alert / awake / arousable and participated in evaluation Patient Amnestic to Procedure: Yes Nausea / Vomiting: adequately controlled Pain: adequately controlled Airway Patency, RR, SpO2: stable & adequate BP & HR: stable & adequate Hydration State: stable & adequate Neuraxial Anesthesia: was administered and sensory block is resolving Anesthetic Complications: no major complications apparent and Pt Satisfied with anesthetic care
[2025-06-14] MEDS ORDERED: INSULIN GLARGINE 100 UNIT/ML VIAL SC SCH (16:30)
[2025-06-14] MEDS: LANTUS PER UNIT CHARGE SC SCH (17:13)
[2025-06-14] MEDS: SENNA 8.6 MG TAB PO SCH (21:52)
[2025-06-14] MEDS: ATORVASTATIN 40 MG TAB PO SCH (21:52)
[2025-06-14] MEDS: DOCUSATE SODIUM 100 MG CAP PO SCH (21:52)
[2025-06-14] MEDS: ASPIRIN 81 MG ECTAB PO SCH (21:52)
[2025-06-15 07:31] VITALS: BP 122/76; PULSE 56; RESP 16; TEMP 97.9; O2SAT 96
--- NOTE | 2025-06-15 08:58 | Orthopedic Progress Note ---
Date of Service June 15, 2025 Assessment & Plan (1) Status post total right knee replacement: * Continue Current Treatment * Disposition: home * Daily treatment: Physical Therapy/ Occupational Therapy per protocol * Weight bearing status: WBAT * Continue to monitor for ABLA * Pain control * DVT prophylaxis, ASA * Office/hospital f/u 2 weeks for progress check and staple/suture removal * Plan for discharge today pending PT/OT clearance Subjective .Active Problems: S/p right TKA POD 1 74 y/o male s/p right TKA. Doing well overall, pain managed and improved function. Denies fever/chills, chest pain/SOB, nausea/vomiting. Otherwise no complaints. Review of Systems All systems reviewed & are unremarkable except as noted in HPI & below. Physical Exam . * General: Alert and oriented, no acute distress * Constitutional: well-developed, well-nourished. * Respiratory: Normal respiratory effort, no distress * Gastrointestinal: No tenderness to palpation, no rigidity or guarding. * Skin: No rash or lesion. * Neurologic: Grossly normal * Musculoskeletal: Right knee surgical dressing CDI, not removed for exam. Otherwise no obvious deformity or overlying skin changes RLE. Diffuse TTP distal thigh and knee region. Otherwise no specific tenderness of proximal thigh, lower leg, foot/ankle. AROM knee flexion 80 degrees. AROM foot/ankle intact. Sensation intact plantar/dorsal foot. Brisk capillary refill. Results & Data Results & Data Laboratory Results . Diagnostic Findings . Knee X-Ray 06/14/25 09:03 XR knee RT 1 or 2V routine CLINICAL HISTORY: Surgical Post Op COMPARISON: 08/31/2022 FINDINGS: Right knee prosthesis shows no hardware complication. There is expected soft tissue gas. IMPRESSION: Unremarkable postoperative exam. ACT 112: Negative or not required by law. Electronically signed by: Jairo Landaverde M.D. 06/14/2025 9:25 AM PG Care Time/CCT Total # of Minutes Spent Total Time Spent with Patient: Total time spent is greater than 50% in coordination of care (as documented) at patient's floor/unit and/or counseling patient: Coding Level of Care Code 80938 Post Operative Follow-Up Diagnoses Status post total right knee replacement Z96.651
[2025-06-15] MEDS: TAMSULOSIN HCL 0.4 MG CAP PO SCH (09:36)
[2025-06-15] MEDS: CITALOPRAM 40 MG TAB PO SCH (09:37)
[2025-06-15] MEDS: MULTIVITAMIN TAB PO SCH (09:38)
[2025-06-15] MEDS: METOPROLOL SUCC 50MG EXT REL TAB PO SCH (09:39)
== END 2025-06-15 11:26 | disposition home or self-care (01) ==
LOC: 3E 05:18 → ASU 05:18 → 3E 06-15 08:11